=== PATIENT | female | born 1980 | race Caucasian/White ===

== ENCOUNTER → 2020-10-21 | Outpatient (CLI) | payer OTHER ==
[2015-06-07 23:45] VITALS: BP 116/71
[~2020-10-21] MED LIST: ESOM40CA PO; HYDR-2155 PO; HYDR-2678 PO
--- NOTE | 2020-10-21 16:55 | RAD ---
EXAM: Lumbar spine, 3 views. HISTORY: Pain. COMPARISON: None. FINDINGS: 3 views of the lumbar spine are obtained. There is mild S-shaped thoracolumbar scoliosis. T here is no significant listhesis. The vertebral bodies are normal in height and the disc spaces are p reserved. There are incidental cholecystectomy clips. IMPRESSION: Mild shaped thoracolumbar scoliosis. No acute osseous finding. Electronically signed by: Mony Junior MD (10/21/2020 4:52 PM) [id number]
== END ==
LOC: RAD 16:34
PROVIDERS: ATTEND Psychiatry & Neurology Neurology
DX: M41.85 Other forms of scoliosis, thoracolumbar region (principal); Z90.49 Acquired absence of other specified parts of digestive tract
CPT/HCPCS: 72100

== ENCOUNTER 2022-01-26 20:48 | Emergency (ER) | payer OTHER ==
[~2022-01-26] VITALS: Ht 149.9 cm; Wt 77.7 kg
--- NOTE | 2022-01-26 21:02 | PHYS DOC ---
Past History Past Medical History: No Pertinent History, A-Fib, Fibromyalgia Past Surgical History: No Surgical History Alcohol Use: None Drug Use: None General Adult EDM: Chief Complaint: CHEST PAIN HPI: HPI: ".I ve been having some chest pain.. here in the center.. for almost 20 min constant.. a7/10.. But had some cardiac things so I want to get checked out" " I have not been hurting since I got here..." Patient is a 41 year old female who presents with above hx and complaints of central chest pain. The chest pain did not seem to be associated with any dysrhythmia. Pain is rated at its worst 7 out of 10. Did not radiate but remained in the center of the chest. Did states she almost felt lightheaded. Nothing seemed to make it better nothing seems to make it worse. Patient does have past medical history of hypertension, A. fib, arthritis. Fibromyalgia, patient is not on any anticoagulation patient normally follows with Dr. Stevenson. Review of Systems: Review of Systems: Constitutional: Denies fever or chills Eyes: Denies change in visual acuity HENT: Denies nasal congestion or sore throat Respiratory: Denies cough or shortness of breath Cardiovascular: Complains of central chest pain GI: Denies abdominal pain, nausea, vomiting, bloody stools or diarrhea : Denies dysuria Musculoskeletal: Denies back pain or joint pain Integument: Denies rash Neurologic: Denies headache, focal weakness or sensory changes Endocrine: Denies polyuria or polydipsia Lymphatic: Denies swollen glands Psychiatric: Denies depression or anxiety Family History: Family History: Noncontributory to presentation Current Medications: Current Meds: See nursing for home meds Allergies: Allergies: Allergies Coded Allergies Type Severity Reaction Last Updated Verified No Known Drug Allergies 03/19/14 No Physical Exam: PE: Constitutional: Mild distress, non-toxic appearance. [] HENT: Normocephalic, atraumatic, bilateral external ears normal, oropharynx moist, no oral exudates, nose normal. [] Eyes: PERRLA, EOMI, conjunctiva normal, no discharge. [] Neck: Normal range of motion, no tenderness, supple, no stridor. [] Cardiovascular:Heart rate regular rhythm, no murmur [] Lungs & Thorax: Bilateral breath sounds equal apex on auscultation []. R eproducible central chest pain on palpation Abdomen: Bowel sounds normal, soft, no tenderness, no masses, no pulsatile masses. [] Skin: Warm, dry, no erythema, no rash. [] Back: No tenderness, no CVA tenderness. [] Extremities: No tenderness, no cyanosis, no clubbing, ROM intact, no edema. No cording appreciated Neurologic: Alert and oriented X 3, normal motor function, normal sensory function, no focal deficits noted. [] Psychologic: Affect normal, judgement normal, mood normal. [] EKG: EKG: M interpretation EKG shows a sinus rhythm at 92 bpm. There is a slightly prolonged QT interval at 400 ms and a QTC of 500 ms. No findings of acute STEMI with contralateral changes. Time of EKG is 2100 hrs. []My interpretation of second EKG shows a sinus rhythm at 71 bpm. No acute morphology. No findings acute STEMI of contralateral changes. No significant interval change from prior EKG. Time of this EKG is 114 Radiology/Procedures: Radiology/Procedures: [][address] [address] IMAGING REPORT Signed PATIENT: JAMES CHRISTIANSON DACCOUNT: [id number] : 1980 LOCATION: ER AGE: 41 SEX: F EXAM STATUS: REG ER ORD. PHYSICIAN: AMAYA OLEARY MD REASON: chest pain PROCEDURE: PORTABLE CHEST 1V Exam: Chest one view INDICATION: Chest pain TECHNIQUE: Frontal view of the chest Comparisons: None FINDINGS: The cardiomediastinal silhouette and pulmonary vessels are within normal limits. The lung and pleural spaces are clear. IMPRESSION: No acute cardiopulmonary process. Electronically signed by: Davion Velasquez MD (01/26/2022 9:46 PM) [facility] DICTATED AND SIGNED BY: DAVION VELASQUEZ MD DATE: 01/26/222144 CC: MEDARDO STEVENSON MD; AMAYA OLEARY MD ~ Heart Score: C/O Chest Pain: Yes HEART Score for Chest Pain: HEART Score for Chest Pain Response (Comments) Value History Slighlty/Non-Suspicious 0 ECG Nonspecific Repolarizatio 1 Age < 45 0 Risk Factors 1 or 2 Risk Factors 1 Troponin < Normal Limit 0 Total 2 Risk Factors: Risk Factors: DM, Current or recent (<one month) smoker, HTN, HLP, family history of CAD, obesity. Risk Scores: Score 0 - 3: 2.5% MACE over next 6 weeks - Discharge Home Score 4 - 6: 20.3% MACE over next 6 weeks - Admit for Clinical Observation Score 7 - 10: 72.7% MACE over next 6 weeks - Early Invasive Strategies Course & Med Decision Making: Course & Med Decision Making Pertinent Labs and Imaging studies reviewed. (See chart for details) Patient was observed in the emergency department for 6 hours. No further episodes of chest pain. No episodes of A. fib. Patient requesting to be discharged home. Will follow up with her cardiology and Dr. Stevenson. Patient instructed return if any concerns. Must increase potassium in his diet. Patient continue meds as previous directed. Patient to follow-up with Dr. Stevenson. Consider follow-up with cardiology and get outpatient stress testing. Return if any concerns. Increase potassium in your diet Continue a daily aspirin. Continue her hypertensive meds Impression: 1. Chest pain 2. Hx Afib. 3. Hypokalemia-3.0 4. Fibromyalgia [] Dragon Disclaimer: Dragon Disclaimer: This electronic medical record was generated, in whole or in part, using a voice recognition dictation system. Departure Departure: Referrals: MEDARDO STEEVNSON MD (PCP) Dragon Disclaimer This chart was dictated in whole or in part using Voice Recognition software in a busy, high-work load, and often noisy Emergency Department environment. It may contain unintended and wholly unrecognized errors or omissions. Dragon Disclaimer This chart was dictated in whole or in part using Voice Recognition software in a busy, high-work load, and often noisy Emergency Department environment. It may contain unintended and wholly unrecognized errors or omissions. AMAYA OLEARY MD Jan 26, 2022 21:02
[2022-01-26] MEDS ORDERED: IV RINGERS SOLUTION,LACTATED 1,000 ML IV SCH (21:15)
[2022-01-26 21:41] LABS: BASO % 1 % (0-3); EOS # 0.1 x10^3/uL (0.0-0.7); EOS % 1 % (0-3); HEMATOCRIT 36.9 % (36.0-47.0); HEMOGLOBIN 12.4 g/dL (12.0-15.5); LYMPH # 1.9 x10^3/uL (1.0-4.8); LYMPH % 23 % (24-48); MEAN CORPUSCULAR HEMOGLOBIN 34 pg (25-35); MEAN CORPUSCULAR HGB CONC 34 g/dL (31-37); MEAN CORPUSCULAR VOLUME 102 fL (79-100); MONO # 0.7 x10^3/uL (0.0-1.1); MONO % 8 % (0-9); NEUT # 5.6 x10^3uL (1.8-7.7); NEUT % 68 % (31-73); PLATELET COUNT 182 x10^3/uL (140-400); RED BLOOD COUNT 3.62 x10^6/uL (3.50-5.40); RED CELL DISTRIBUTION WIDTH 13.3 % (11.5-14.5); WHITE BLOOD COUNT 8.3 x10^3/uL (4.0-11.0)
--- NOTE | 2022-01-26 21:48 | RAD ---
Exam: Chest one view INDICATION: Chest pain TECHNIQUE: Frontal view of the chest Comparisons: None FINDINGS: The cardiomediastinal silhouette and pulmonary vessels are within normal limits. The lung and pleural spaces are clear. IMPRESSION: No acute cardiopulmonary process. Electronically signed by: Davion Orta MD (01/26/2022 9:46 PM) [facility]
[2022-01-26 21:49] LABS: CALCIUM 8.5 mg/dL (8.5-10.1); CREATININE 0.9 mg/dL (0.6-1.0)
--- NOTE | 2022-01-26 21:49 | EKG ---
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
[2022-01-26 22:02] LABS: ALBUMIN 3.5 g/dL (3.4-5.0); DIRECT BILIRUBIN 0.1 mg/dL (0.0-0.2); MAGNESIUM 1.8 mg/dL (1.8-2.4); TOTAL BILIRUBIN 0.1 mg/dL (0.2-1.0); TOTAL PROTEIN 7.4 g/dL (6.4-8.2)
[2022-01-26 22:33] LABS: BARBITURATES NEG (NEG); BENZODIAZEPINES NEG (NEG); CANNABINOIDS NEG (NEG); COCAINE NEG (NEG); METHADONE NEG (NEG); OPIATES NEG (NEG); PHENCYCLIDINE NEG (NEG)
[2022-01-26 22:38] LABS: AMPHETAMINE/METHAMPHETAMINE NEG (NEG)
[2022-01-26 23:15] LABS: CLARITY,URINE CLEAR; COLOR,URINE YELLOW; GLUCOSE,URINE NEG (NEG)
[2022-01-26 23:16] LABS: BACTERIA,URINE 0 /HPF (0-FEW); NITRITE,URINE NEG (NEG); SQUAMOUS EPITHELIAL CELL,UR MANY /LPF; UROBILINOGEN,URINE 0.2 mg/dL (0.2 mg/dL); WBC,URINE 0 /HPF (0-4)
[2022-01-27] MEDS ORDERED: POTASSIUM CHLORIDE 20 MEQ TABLET.ER. PO ONE ×2 (01:15→02:45)
--- NOTE | 2022-01-27 01:19 | EKG ---
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
[2022-01-27 02:44] VITALS: BP 101/51
== END 2022-01-27 02:48 | disposition home or self-care (01) ==
LOC: ER 20:48
DX: R07.89 Other chest pain (principal); E87.6 Hypokalemia; M79.7 Fibromyalgia; I48.91 Unspecified atrial fibrillation; I10 Essential (primary) hypertension
CPT/HCPCS: 36415; 71045; 80048; 80076; 80307; 81001; 81025; 82550; 83690; 83735; 83880; 84443; 84484; 85025; 85379; 85610; 85730; 93005; 96360; 99285; J7120